=== PATIENT | female | born 1980 | race Caucasian/White ===

== ENCOUNTER 2022-12-23 11:10 | Emergency (ER) | payer SELFPAY ==
[~2022-12-23] VITALS: Ht 167.6 cm; Wt 60.0 kg
[2022-12-23 11:14] VITALS: O2SAT 100
[2022-12-23 12:58] LABS: BASOPHILS % 0.5 % (0.0-2.0); EOSINOPHILS % 0.1 % (0.0-5.0); HEMATOCRIT. 36.5 % (36.0-48.0); HEMOGLOBIN. 12.6 g/dL (12.0-16.0); LYMPHOCYTES % 13.1 % (20.0-50.0); MEAN CORPUSCULAR HEMOGLOBIN 32.1 pg (28.0-32.0); MEAN CORPUSCULAR VOLUME 93.1 fL (81.0-99.0); MEAN PLATELET VOLUME 7.7 fl (7.4-10.4); MONOCYTES % 6.3 % (2.0-8.0); PLATELET 429 x1000/uL (130-400); RED BLOOD CELL COUNT 3.92 mill/uL (4.2-5.4); RED CELL DISTRIBUTION WIDTH 12.7 % (11.6-14.6)
[2022-12-23 13:14] LABS: CHLORIDE 112 mEq/L (98-107)
[2022-12-23 13:43] LABS: ETHANOL BLOOD < 10 mg/dL (-10)
[2022-12-23 13:44] VITALS: BP 114/70; PULSE 78; RESP 16; TEMP 98.6
== END 2022-12-23 15:06 | disposition home or self-care (01) ==
LOC: ER 11:28 → EDBD 11:28 → ER 15:06
DX: F29 Unspecified psychosis not due to a substance or known physiological condition (principal)
CPT/HCPCS: 36415; 80053; 80307; 80320; 80329; 85025; 99283; G0480

== ENCOUNTER 2023-02-04 23:42 | Emergency (ER) | payer OTHER ==
[~2023-02-04] VITALS: Ht 165.1 cm; Wt 50.0 kg
[2023-02-04 23:54] VITALS: BP 132/70; PULSE 70; RESP 20; TEMP 98.2; O2SAT 99
[2023-02-05] MEDS ORDERED: TETANUS, DIPHTHERIA, PERTUSSIS VAC/PF 0.5ML (>10YR OLD) IM ONE (00:45)
[2023-02-05] MEDS ORDERED: IBUP-2029 MT (02:08)
[2023-02-05] MEDS ORDERED: CEPH500C2 MT (02:08)
== END 2023-02-05 05:17 | disposition home or self-care (01) ==
LOC: ER 23:42
DX: S01.81XA Laceration without foreign body of other part of head, initial encounter (principal); X58.XXXA Exposure to other specified factors, initial encounter; Y93.89 Activity, other specified; Y92.89 Other specified places as the place of occurrence of the external cause; Y99.8 Other external cause status
CPT/HCPCS: 90471; 90715; 99283